=== PATIENT | female | born 1945 | race Caucasian/White ===

== ENCOUNTER 2021-12-11 15:39 | Inpatient (IN) ==
[2021-12-11] MEDS ORDERED: diazePAM 5 MG TABLET PO PRN (15:57)
[2021-12-11] MEDS ORDERED: Ondansetron ODT 4 MG TAB.RAPDIS SL PRN (15:59)
[2021-12-11] MEDS ORDERED: polyethylene glycoL 3350 17 GM POWD.PACK PO PRN (16:00)
[2021-12-11] MEDS: Apixaban 5 MG TABLET PO SCH (21:30)
[2021-12-11] MEDS: Melatonin 3 MG TABLET PO PRN (21:31)
[2021-12-11] MEDS: Acetaminophen 325 MG TABLET PO PRN (21:31)
[2021-12-12 08:21] LABS: Basophils % 0.8 %; Eosinophils # 0.2 K/mcL (0.0-0.6); Eosinophils % 7.5 %; Immature Granulocytes % 0.4 % (0-4); Lymphocytes # 0.6 K/mcL (0.6-4.6); Lymphocytes % 22.9 %; Mean Corpuscular HGB Conc 31.7 g/dL (31.6-35.5); Mean Corpuscular Hemoglobin 31.8 pg (28.0-33.3); Mean Corpuscular Volume 100.3 fL (83.0-100.0); Mean Platelet Volume 10.3 fL (9.4-12.4); Monocytes # 0.4 K/mcL (0.0-1.3); Monocytes % 13.9 %; Neutrophils # 1.5 K/mcL (1.6-8.9); Platelet Count 145 K/mcL (140-400); Red Blood Count 2.89 M/mcL (3.82-4.97); Red Cell Distribution Width 15.1 % (11.5-14.5); Segmented Neutrophils % 54.5 %; White Blood Count 2.7 K/mcL (4.3-11.1)
[2021-12-12 08:24] LABS: Hemoglobin 9.2 g/dL (11.5-15.4)
[2021-12-12 08:46] LABS: BUN/Creatinine Ratio 27 (6-26); Blood Urea Nitrogen 29 mg/dL (8-23); Calcium 8.1 mg/dL (8.6-10.3); Carbon Dioxide 31 mEq/L (23-29); Chloride 109 mEq/L (98-107); Glucose 83 mg/dL (70-105); Osmolality,Calculated 305 (280-300); Potassium 3.3 mEq/L (3.5-5.1); Sodium 145 mEq/L (136-145); eGFR For African Americans > 60 (> 60); eGFR For Non-African Americans 50 (> 60)
[2021-12-12] MEDS: Furosemide 20 MG TABLET PO SCH (10:57)
[2021-12-12] MEDS: Apixaban 5 MG TABLET PO SCH ×2 (10:57→21:05)
[2021-12-12] MEDS: Aspirin 81 MG TAB.CHEW PO SCH (10:57)
[2021-12-12] MEDS: Melatonin 3 MG TABLET PO PRN (21:04)
[2021-12-13] MEDS: Acetaminophen 325 MG TABLET PO PRN (08:08)
[2021-12-13] MEDS: Aspirin 81 MG TAB.CHEW PO SCH (09:59)
[2021-12-13] MEDS: Apixaban 5 MG TABLET PO SCH ×2 (09:59→21:09)
[2021-12-13] MEDS: Furosemide 20 MG TABLET PO SCH (09:59)
[2021-12-13] MEDS: Melatonin 3 MG TABLET PO PRN (21:08)
[2021-12-14] MEDS: Acetaminophen 325 MG TABLET PO PRN ×2 (06:32→20:03)
[2021-12-14] MEDS: Aspirin 81 MG TAB.CHEW PO SCH (07:56)
[2021-12-14] MEDS: Apixaban 5 MG TABLET PO SCH ×2 (07:57→19:59)
[2021-12-14] MEDS: Furosemide 20 MG TABLET PO SCH (07:57)
[2021-12-14] MEDS: Melatonin 3 MG TABLET PO PRN (19:59)
[2021-12-15] MEDS: Acetaminophen 325 MG TABLET PO PRN ×3 (05:29→22:54)
[2021-12-15] MEDS: Aspirin 81 MG TAB.CHEW PO SCH (07:47)
[2021-12-15] MEDS: Furosemide 20 MG TABLET PO SCH (07:48)
[2021-12-15] MEDS: Apixaban 5 MG TABLET PO SCH ×2 (07:48→20:56)
[2021-12-15] MEDS ORDERED: Melatonin 3 MG TABLET PO PRN (21:00)
[2021-12-16] MEDS: Aspirin 81 MG TAB.CHEW PO SCH (07:16)
[2021-12-16] MEDS: Furosemide 20 MG TABLET PO SCH (07:16)
[2021-12-16] MEDS: Apixaban 5 MG TABLET PO SCH ×2 (07:17→21:08)
[2021-12-16] MEDS: Acetaminophen 325 MG TABLET PO PRN (22:59)
[2021-12-17 07:24] VITALS: BP 135/71; PULSE 97; RESP 17; TEMP 98.2; O2SAT 97
[2021-12-17] MEDS: Furosemide 20 MG TABLET PO SCH (08:41)
[2021-12-17] MEDS: Aspirin 81 MG TAB.CHEW PO SCH (08:41)
[2021-12-17] MEDS: Apixaban 5 MG TABLET PO SCH (08:41)
== END 2021-12-17 10:30 | disposition home or self-care (01) | DRG 291 ==
LOC: INPPIK 16:07
PROVIDERS: ADMIT Family Medicine; ATTEND Family Medicine